=== PATIENT | male | born 1995 | race Caucasian/White ===

== ENCOUNTER → 2021-04-09 | Day surgery (SDC) | payer BC, OTHER | END | disposition home or self-care (01) | LOC: JRADIR 10:36 | PROVIDERS: ATTEND Orthopaedic Surgery Hand Surgery | PROC: BP18YZZ Fluoroscopy of Right Shoulder using Other Contrast (ICD-10-PCS; principal; 2021-04-09) | PROC: BP38YZZ Magnetic Resonance Imaging (MRI) of Right Shoulder using Other Contrast (ICD-10-PCS; 2021-04-09) | DX: M25.511 Pain in right shoulder (principal) | CPT/HCPCS: 23350; 73040-TC-FY; 73222-TC; 77002-TC-FY ==